=== PATIENT | male | born 2000 | race Caucasian/White ===

== ENCOUNTER 2020-07-10 19:20 | Emergency (ER) | payer OTHER, SELFPAY ==
--- NOTE | ~2020-07-10 | XR_ITS ---
EXAMINATION: XR chest 1V portable DATE: 07/10/2020 20:19 INDICATION: Cough. Medial chest pain. Fever. TECHNIQUE: A single frontal view of the chest was obtained. COMPARISON: None. FINDINGS: The chest demonstrates clear lungs without pneumonia, pleural effusion, or pneumothorax. Th e heart size is normal. IMPRESSION: 1. No acute cardiopulmonary disease. Reviewed, dictated and finalized at location A.
[2020-07-10 19:27] VITALS: BP 121/76; PULSE 109; RESP 16; TEMP 37.3; O2SAT 99
--- NOTE | 2020-07-10 19:30 | ECG_ITS ---
Measurements Intervals [place] Rate: 97 P: 148 MD: 116 QRS: 142 QRSD: 94 T: 137 QT: 304 QTc: 387 Interpretive Statements SINUS RHYTHM WITH SHORT MD INTERVAL LIMB LEAD REVERSAL POSSIBLE LEFT ATRIAL ENLARGEMENT BASELINE ARTIFACT- I, III, AVL BORDERLINE ECG Electronically Signed On 07-11-2020 7:30:10 CDT by Arvind Dunlap D.O.
[2020-07-10 19:42] LABS: Basophils Absolute Auto 0.1 K/mm3 (0.0-0.1); Basophils Percent Auto 0.8 % (0.2-1.2); Eosinophils Absolute Auto 0.4 K/mm3 (0-0.3); Eosinophils Percent Auto 4.5 % (0-4.4); Hematocrit 47.8 % (42.0-52.0); Hemoglobin 17.2 g/dL (14.0-18.0); Immature Granulocyte Absolute 0.02 K/mm3 (0.00-0.031); Immature Granulocyte Percent A 0.2 % (0-0.5); Lymphocytes Absolute Auto 2.48 K/mm3 (0.9-3.2); Mean Corpuscular Hemoglobin 31.4 pg (26-34); Mean Corpuscular Volume 87.4 fl (80-100); Mean Platelet Volume 11.6 fl (7.4-10.4); Monocytes Absolute Auto 0.7 K/mm3 (0.1-0.6); Monocytes Percent Auto 6.9 % (2.6-8.5); Neutrophils Absolute Auto 5.9 K/mm3 (1.3-6.7); Neutrophils Percent Auto 61.6 % (45.5-73.1); Platelet Count Result 142 k/mm3 (150-375); Red Blood Count 5.47 M/mm3 (4.6-6.20); Red Cell Distribution Width 11.9 % (11.5-14.5); White Blood Count 9.5 K/mm3 (4.5-10.0)
[2020-07-10 19:55] LABS: INR 1.1
[2020-07-10 19:56] LABS: Anion Gap 10 mmol/L (8-16); Blood Urea Nitrogen 12 mg/dL (9-20); Carbon Dioxide 23 mmol/L (22-30); Chloride 103 mmol/L (98-107); Estimated CRCL calculation 131 ml/min; Estimated Glomerular Filt Rate > 60; Glucose 122 mg/dL (75-110); Partial Thromboplastin Time 28.6 SECONDS (22.3-36.8); Potassium 3.8 mmol/L (3.4-5.0); Sodium 136 mmol/L (137-145)
[2020-07-10 20:08] LABS: Troponin I < 0.012 ng/mL (0.000-0.034)
[2020-07-10] MEDS: ACETAMINOPHEN 500 MG TABLET 1000 MG PO (20:31)
[2020-07-10] MEDS: predniSONE 20 MG TABLET 60 MG PO (20:33)
[2020-07-10 20:35] VITALS: O2SAT 98
--- NOTE | 2020-07-10 20:55 | ED.GENADULT ---
HPI - General Adult General Chief complaint: Chest Pain Stated complaint: cough Time Seen by Provider: 07/10/20 20:11 Source: patient Mode of arrival: ambulatory Limitations: no limitations History of Present Illness HPI narrative: Patient is a 19-year-old male who presents with several days duration of upper respiratory symptoms with rhinorrhea congestion productive cough patient had similar occurrence and had negative COVID screening but now has had a recurrence of symptoms on arrival to emergency department patient in the room in no distress does note some aching pain in the chest that occurs with coughing patient with history of tobacco abuse denies sick contacts Review of Systems Review of Systems: All systems reviewed & are unremarkable except as noted in HPI and below PMFSH Social History Social History (Updated 07/10/20 @ 20:58 by Ellis Arora PA-C) Smoking status: Current every day smoker Exam Narrative: Exam Narrative: GENERAL: Well-appearing, well-nourished, and in no acute distress. HEAD: Normocephalic, atraumatic. EYES: PERRLA and EOMI. ENT: Nares clear, no rhinorrhea or epistaxis. Mucous membranes moist. Oropharynx without tonsillar hypertrophy exudate or other lesions. NECK: Supple. No adenopathy or masses. CHEST: Clear to auscultation. No respiratory distress. Expiratory wheezes no crackles HEART: Regular rate and rhythm. No murmur heard. Normal peripheral pulses. ABDOMEN: Soft, nontender, nondistended EXTREMITIES: Normal range of motion. No edema. SKIN: Warm, dry, no rash. NEURO: No focal deficits. Alert and oriented x3. Cranial nerves II through XII grossly intact PSYCH: Normal mood and affect. Course Course Emergency Course: Patient in the room at this time aware of case findings treatment plan and diagnosis no pneumonia seen on exam will be treated for bronchitis also swabbed.. For COVID agrees to self quarantining and provided with reasons to return Vital Signs Vital signs: Vital Signs Temperature 99.2 F 07/10/20 19:27 Pulse Rate 109 H 07/10/20 19:27 Respiratory Rate 16 07/10/20 19:27 Blood Pressure 121/76 07/10/20 19:27 Pulse Oximetry 99 07/10/20 19:27 Temperature 99.2 F 07/10/20 19:27 Pulse Rate 109 H 07/10/20 19:27 Respiratory Rate 16 07/10/20 19:27 Blood Pressure 121/76 07/10/20 19:27 Pulse Oximetry 98 07/10/20 20:35 Medical Decision Making MDM Narrative Medical decision making narrative: Patient with likely bronchitis will be swabbed for COVID sent home with medications for his symptoms provided with reasons to return and agrees to follow with primary care felt appropriate for outpatient treatment will be treated symptomatically provided with reasons to return Vital Signs Vital Signs: Vital Signs Temperature 99.2 F 07/10/20 19:27 Pulse Rate 109 H 07/10/20 19:27 Respiratory Rate 16 07/10/20 19:27 Blood Pressure 121/76 07/10/20 19:27 Pulse Oximetry 99 07/10/20 19:27 Temperature 99.2 F 07/10/20 19:27 Pulse Rate 109 H 07/10/20 19:27 Respiratory Rate 16 07/10/20 19:27 Blood Pressure 121/76 07/10/20 19:27 Pulse Oximetry 98 07/10/20 20:35 Lab Data Result diagrams: 07/10/20 19:36 07/10/20 19:36 Labs: Lab Results 07/10/20 07/10/20 07/10/20 Range/Units 19:36 19:36 19:36 WBC 9.5 (4.5-10.0) K/mm3 RBC 5.47 (4.6-6.20) M/mm3 Hgb 17.2 (14.0-18.0) g/dL Hct 47.8 (42.0-52.0) % MCV 87.4 (80-100) fl MCH 31.4 (26-34) pg MCHC 36.0 (32-36) g/dl RDW 11.9 (11.5-14.5) % Plt Count 142 L (150-375) k/mm3 MPV 11.6 H (7.4-10.4) fl Immature Gran % (Auto) 0.2 (0-0.5) % Neut % (Auto) 61.6 (45.5-73.1) % Lymph % (Auto) 26.0 (18.3-44.2) % [place] % (Auto) 6.9 (2.6-8.5) % Eos % (Auto) 4.5 H (0-4.4) % Baso % (Auto) 0.8 (0.2-1.2) % Lymph # (Auto) 2.48 (0.9-3.2) K/mm3 [place] # (Auto) 0.7 H (0.1-0.6) K/mm3 Eos # (Auto)
[2020-07-10 21:30] VITALS: BP 110/81; PULSE 102; RESP 16; O2SAT 98
[2020-07-11 12:25] LABS: SARS-CoV-2 RNA PCR Negative
== END 2020-07-10 21:25 | disposition home or self-care (01) ==
PROVIDERS: Emergency Medicine; Emergency Medicine Emergency Medical Services; Emergency Provider Emergency Medicine
DX: J06.9 Acute upper respiratory infection, unspecified (principal); Z20.828 Contact with and (suspected) exposure to other viral communicable diseases; F17.210 Nicotine dependence, cigarettes, uncomplicated
CPT/HCPCS: 36415; 71045; 80048; 84484; 85025; 85610; 85730; 87635; 93005; 99284; A9270; C9803; J7512; U0003

== ENCOUNTER 2020-10-28 10:53 | Emergency (ER) | payer OTHER, SELFPAY ==
--- NOTE | ~2020-10-28 | XR_ITS ---
EXAMINATION: XR chest 2V 10/28/2020 11:15 INDICATION: Chest pain after fall. PROCEDURE: PA and lateral views of the chest COMPARISON: 07/10/2020 FINDINGS: The lungs are clear. The cardiomediastinal silhouette is within normal limits. There are no pleural effusions. There is no pneumothorax suspected. IMPRESSION: 1: NO ACUTE CARDIOPULMONARY DISEASE. Reviewed, dictated and finalized at location A. [employer]
[2020-10-28 11:00] VITALS: BP 140/96; PULSE 70; RESP 21; TEMP 36.8; O2SAT 100
--- NOTE | 2020-10-28 11:36 | ED.FALL ---
HPI - Fall General Chief Complaint: Fall Stated Complaint: fall yesterday, painful w/ inspiration Time Seen by Provider: 10/28/20 11:08 History of Present Illness HPI Narrative: Patient is a 20-year-old male otherwise healthy who comes into the ED today complaining of pain in his chest and right posterior chest wall after mechanical fall yesterday. Patient reports he was snowboarding yesterday and went to stop when he fell forwards, landing on his chest and abdomen. Was not having much pain initially but pain became worse throughout the day and overnight. Pain is constant and made worse with deep breathing. He does feel a little short of breath. No nausea or vomiting. Related Data Allergies Allergy/AdvReac Type Severity Reaction Status Date / Time No Known Allergies Allergy Verified 10/28/20 11:16 Review of Systems Review of Systems: All systems reviewed & are unremarkable except as noted in HPI and below [facility] Social History Social History (Updated 07/10/20 @ 20:58 by Ellis Arora PA-C) Smoking status: Current every day smoker Gender identity (if verbalized by the patient): Male Exam Const: General: no acute distress HENMT: Head: normal to inspection Eyes: Conjunctivae: conjunctivae normal Pupils: Equal, round and reactive pupils present Neck: Neck: normal visual inspection Chest: Chest palpation & inspection: tenderness Other: Tender to palpate over right sided posterior and anterior chest wall. There is no overlying ecchymosis or signs of trauma. Resp: Effort & Inspection: normal respiratory effort, not labored and not tachypneic Auscultation: clear to auscultation bilaterally and breath sounds present Cardio: Rate: regular rate Rhythm: regular rhythm Heart sounds: no murmurs GI: Inspection: non-distended GI Palp: Yes Soft to palpation, Yes Tenderness to palpation present (GI) (Epigastric tenderness), No Guarding due to palpation present (GI), No Rigid due to palpation and No Rebound tenderness present Back/Spine/Pelvis: Back: no CVA tenderness Skin: General skin exam: normal color Neuro: General: patient oriented x3 and moves all extremities Extrem: General: normal to inspection and no edema Other: Full range of motion bilateral upper extremities without pain Psych: Appearance: grossly normal Mental Status: mental status grossly normal Affect: normal affect Course Course Emergency Course: 1332: Patient feeling much better after the Tylenol and ibuprofen. Pain is almost completely resolved. He is able to take deep breaths with minimal discomfort. Has a strong cough. Agreeable for plan for discharge with conservative care and return to ED with any new or worsening symptoms. Vital Signs Vital signs: Vital Signs Temperature 36.8 C 10/28/20 11:00 Pulse Rate 70 10/28/20 11:00 Respiratory Rate 21 H 10/28/20 11:00 Blood Pressure 140/96 H 10/28/20 11:00 Pulse Oximetry 100 10/28/20 11:00 Temperature 36.8 C 10/28/20 11:00 Pulse Rate 70 10/28/20 11:00 Respiratory Rate 21 H 10/28/20 11:00 Blood Pressure 140/96 H 10/28/20 11:00 Pulse Oximetry 100 10/28/20 11:00 Discharge Plan Discharge Clinical Impression: Acute costochondritis Patient Disposition: Home, Self-Care Condition: Stable Instructions: Antibiotic Form, Costochondritis (ED) Additional Instructions: Alternate Tylenol and ibuprofen as needed to control pain. Take 1-2 deep breaths every hour while awake until the chest pain resolves to avoid developing pneumonia. Can use ice applications of 12 minutes on a 1 to 2 hours off for the next 1 to 2 days and then switch to heat. Pain will probably take a couple weeks to resolve. Return to ED with any new or worsening symptoms. Prescriptions: New ibuprofen 800 mg tablet 800 mg PO TID PRN (Reason: pain) Qty: 30 RF: 0 acetaminophen [Tylenol] 325 mg capsule 650 mg PO Q6H PRN (Reason: pain) Qty: 30 RF: 0 No Action prednis
[2020-10-28] MEDS: ACETAMINOPHEN 500 MG TABLET 1000 MG PO (11:42)
[2020-10-28] MEDS: IBUPROFEN 400 MG TABLET 800 MG PO (11:42)
== END 2020-10-28 14:13 | disposition home or self-care (01) ==
PROVIDERS: Emergency Provider Emergency Medicine; PCP Internal Medicine
DX: M94.0 Chondrocostal junction syndrome [Tietze] (principal); F17.200 Nicotine dependence, unspecified, uncomplicated
CPT/HCPCS: 71046; 99283; A9270

== ENCOUNTER 2021-09-23 10:33 | Emergency (ER) | payer BC, SELFPAY ==
[2021-09-23 10:37] VITALS: BP 130/89; PULSE 118; RESP 16; TEMP 36.2; O2SAT 99
--- NOTE | 2021-09-23 10:37 | ED.URI ---
HPI - URI/Sore Throat General Chief Complaint: Upper Respiratory Infection Stated Complaint: SORE THROAT/COUGH Time Seen by Provider: 09/23/21 10:39 Source: patient, RN notes reviewed and old records reviewed Mode of arrival: ambulatory Limitations: no limitations History of Present Illness HPI Narrative: 20-year-old male presents to the [facility] with complaints of cough and sore throat. Patient reports symptoms for 3 to 4 days. has been taking Vicks DayQuil. Has a history of ADHD Patient reports that he is Covid vaccinated. MD elicited complaint: cough and sore throat Related Data Allergies Allergy/AdvReac Type Severity Reaction Status Date / Time No Known Allergies Allergy Verified 10/28/20 11:16 Review of Systems Review of Systems: All systems reviewed & are unremarkable except as noted in HPI and below Constitutional: Constitutional: Reports no additional constitutional complaints, Denies chills and Denies fever(s) Eyes: Eyes: Reports no additional eye complaints ENT: Reports as per HPI and Reports sore throat Cardiovascular: Cardiovascular: Reports no additional cardiovascular complaints and Denies chest pain Respiratory: Respiratory: Reports as per HPI, Denies chest congestion, Reports cough, Denies dyspnea and Denies wheezing Gastrointestinal: Gastrointestinal: Reports no additional gastrointestinal complaints, Denies abdominal pain, Denies nausea and Denies vomiting Musculoskeletal: Musculoskeletal: Reports no additional musculoskeletal complaints Integumentary/Breasts: Skin/Breast: Reports system reviewed and no additional complaints, except as docu Neurologic: Reports system reviewed and no additional complaints, except as documented Psychiatric: Psychiatric: Reports no additional psychiatric complaints Allergic/Immunologic: Allergic/Immunologic: Reports no additional allergic/immunologic complaints PMFSH Past Medical History Medical History (Updated 09/23/21 @ 10:54 by Aggie Page) ADHD Surgical History Surgical History (Updated 09/23/21 @ 10:41 by Aggie Page) History of nasal surgery Social History Social History (Updated 09/23/21 @ 10:41 by Aggie Page) Smoking status: Current every day smoker Living arrangements: with family Gender identity (if verbalized by the patient): Male Comments At the time of my signature, I reviewed and agree with the nursing past medical, surgical, social, and family history. There is no relevant family history pertinent to the patient complaint. Exam Const: General: no acute distress, alert and ill appearing acutely Nutritional Appearance: well nourished Orientation/consciousness: patient oriented x3 Limitations: no limitations HENMT: Head: normal to inspection Ears: external ears normal, TM's normal bilaterally and EAC's normal General nose exam: Nasal discharge present clear Face and sinus: normal facial exam and sinuses nontender Mouth: Yes moist mucous membranes Eyes: Conjunctivae: conjunctivae normal Pupils: Equal, round and reactive pupils present Neck: Neck: normal visual inspection, no lymphadenopathy and no meningeal signs Chest: Chest palpation & inspection: normal inspection of the chest Resp: Effort & Inspection: normal respiratory effort and no use of accessory muscles Auscultation: no crackles, no rales, no rhonchi and wheezes (Right lower, cleared with cough) Cardio: Rate: regular rate Rhythm: regular rhythm GI: GI Palp: Yes Soft to palpation and No Tenderness to palpation present (GI) Back/Spine/Pelvis: Back: no CVA tenderness Skin: General skin exam: normal color Rashes: no rashes Wounds: no wounds Neuro: General: patient oriented x3, moves all extremities, no meningeal signs and no focal motor deficits Speech: normal speech Gait exam (Neuro): Normal gait present Extrem: General: normal to inspection and no pedal edema Psych: Appearance: grossly normal and well kempt Mental Status: mental sta
== END 2021-09-23 11:00 | disposition home or self-care (01) ==
PROVIDERS: Emergency Provider Nurse Practitioner
DX: J40 Bronchitis, not specified as acute or chronic (principal); F17.210 Nicotine dependence, cigarettes, uncomplicated
CPT/HCPCS: 87081; 87880; 99213; G0463